=== PATIENT | male | born 1955 | race Caucasian/White ===

== ENCOUNTER 2020-07-03 11:00 | Emergency (ER) | payer OTHER ==
[2020-07-03] MEDS ORDERED: ACETAMINOPHEN 1000 MG/100 ML VIAL (NON FORMULARY) IVPB ONE (11:13)
[2020-07-03] MEDS ORDERED: SODIUM CHLORIDE 1,000 ML IV STA (11:13)
--- NOTE | 2020-07-03 11:13 | PDOC ---
History of Present Illness - General Chief Complaint: Pain, Acute Stated Complaint: RIGHT BACK/FLANK PAIN Time Seen by Provider: 07/03/20 11:10 History Source: Patient Exam Limitations: Language Barrier, Other (Pt prefered to use family for translatioun) - History of Present Illness Initial Comments: 65 year old male with PMH HTN, HLD, nicotine use (10 cigarettes per day) presen leonard to the ED for right flank pain since last night. Pt denied chest pain, shortness of breath, cough, nausea, vomiting, dysuria. Pt reported his pain is constant, waxing and waning, radiating around his right abdomen, no alleviating or aggravating factors. ROS General: denied fever, chills, generalized weakness. HEENT: denied sore throat, rhinorrhea, ear pain. Cardiovascular: denied chest pain, palpitations, syncope, diaphoresis. Respiratory: denied shortness of breath, cough, sputum production, hemoptysis. Gastrointestinal: denied abdominal pain, nausea, vomiting, diarrhea, constipation, blood in stool. Genitourinary: admitted to flank pain. denied dysuria, increased urinary frequency, hematuria, urinary incontinence Back: denied back pain. Musculoskeletal: denied joint pain, muscle pain, joint swelling. Neurological: denied headache, dizziness, numbness, tingling, weakness. Integumentary: denied rash, laceration, abrasion. Hematologic/Lymphatic: denied bruising or bleeding. PE Constitutional: Well-nourished, Well-developed, appearing stated age. HEENT: head is normocephalic, atraumatic. EOMI. PERRLA. Neck: supple. Full ROM. Cardiovascular: regular heart rhythm. Normal S1 and S2. no murmurs. no pericardial friction rub. Respiratory: clear to auscultation bilaterally. no crackles, rhonchi or wheezing. no stridor. Gastrointestinal: soft, flat, nontender. normal bowel sounds. no rebound, guarding, or masses. Back: positive right CVA tenderness. negative left CVA tenderness. Extremities: peripheral pulses intact and equal. no lower extremity edema noted. Neurological: CN 2-12 grossly intact. moves all four extremities. Psych: awake, alert, oriented x3. follows commands. answers questions appropriately. Past History - Medical History Allergies/Adverse Reactions: Allergies Allergy/AdvReac Type Severity Reaction Status Date / Time No Known Allergies Allergy Verified 07/03/20 11:09 Home Medications: Ambulatory Orders Atorvastatin Ca [Lipitor] 10 mg PO HS 07/03/20 Ibuprofen 600 mg PO ONCE 07/03/20 Losartan Potassium [Cozaar] 100 mg PO DAILY 07/03/20 ED Treatment Course - LABORATORY CBC & Chemistry Diagram: 07/03/20 11:30 07/03/20 11:30 Medical Decision Making - Medical Decision Making 65 year old male with above PMH presented to ED for right flank pain radiating around to his right abdomen, associated with right + CVA tenderness. Initial Vital Signs Temp Pulse Resp BP Pulse Ox 98.7 F 79 16 167/100 99 07/03/20 11:09 07/03/20 11:09 07/03/20 11:09 07/03/20 11:09 07/03/20 11:09 Hypertensive. Afebrile. Medications ordered Acetaminophen Injection [Ofirmev Injection -] 1,000 mg IVPB ONCE ONE Sodium Chloride [Normal Saline -] 1,000 ml IV ASDIR Orders CBC WITH DIFFERENTIAL Stat COMP METABOLIC PANEL Stat UA ([facility] ONLY) Stat URINE CULTURE Stat Bedside POCUS performed by ia -No left sided hydro -Right sided hydro + dilated renal pelvis -Aorta <3 cm in proximal, mid, and distal views -To be verified by CT imaging 07/03/20 12:20 Laboratory Last Values WBC 12.0 K/mm3 (4.0-10.8) H 07/03/20 11:30 RBC 4.76 M/mm3 (4.00-5.60) 07/03/20 11:30 Hgb 15.0 GM/dl (11.7-16.9) 07/03/20 11:30 Hct 42.7 % (35.4-49) 07/03/20 11:30 MCV 89.8 fl (80-96) 07/03/20 11:30 MCH 31.5 pg (25.7-33.7) 07/03/20 11:30 MCHC 35.0 g/dl (32.0-35.9) 07/03/20 11:30 RDW 12.9 % (11.9-15.9) 07/03/20 11:30 Plt Count 210 K/MM3 (134-434) 07/03/20 11:30 MPV 9.9 fl (7.5-11.1) 07/03/20 11:30 Absolute Neuts (auto) 9.2 K/mm3 07/03/20 11:30 Neutrophils % 76.7 % (42.8-82.8) 07/03/20 11:30 Lymphocytes % 13.1 % (8-40) 07/03/20 11:30 Monocytes % 6.5 % (3.8-10.2) 07/03/20 11:30 Eosinophils % 1.0 % (0-4.5) 07/03/20 11:30 Basophils % 2.7 % (0-2.0) H 07/03/20 11:30 Sodium 138 mmol/L (136-145) 07/03/20 11:30 Potassium 4.0 mmol/L (3.5-5.1) 07/03/20 11:30 Chloride 110 mmol/L (98-107) H 07/03/20 11:30 Carbon Dioxide 19 mmol/L (21-32) L 07/03/20 11:30 Anion Gap 9 MMOL/L (8-16) 07/03/20 11:30 BUN 24.0 mg/dl (7-18) H 07/03/20 11:30 Creatinine 1.0 mg/dl (0.55-1.3) 07/03/20 11:30 Est GFR (CKD-EPI)AfAm 90.50 07/03/20 11:30 Est GFR (CKD-EPI)NonAf 78.08 07/03/20 11:30 Random Glucose 146 mg/dl (74-106) H 07/03/20 11:30 Calcium 8.9 mg/dl (8.5-10) 07/03/20 11:30 Total Bilirubin 0.7 mg/dl (0.2-1) 07/03/20 11:30 AST 18 U/L (15-37) 07/03/20 11:30 ALT 24 U/L (13-61) 07/03/20 11:30 Alkaline Phosphatase 55 U/L (45-117) 07/03/20 11:30 Total Protein 7.0 g/dl (6.4-8.2) 07/03/20 11:30 Albumin 4.2 g/dl (3.4-5.0) 07/03/20 11:30 Urine Color Yellow 07/03/20 12:10 Urine Appearance Clear 07/03/20 12:10 Urine pH 5.0 (4.5-8) 07/03/20 12:10 Urine Protein Negative (NEGATIVE) 07/03/20 12:10 Urine Glucose (UA) Negative (NEGATIVE) 07/03/20 12:10 Urine Ketones Negative (NEGATIVE) 07/03/20 12:10 Urine Blood 2+ (NEGATIVE) H 07/03/20 12:10 Urine Nitrite Negative (NEGATIVE) 07/03/20 12:10 Urine Bilirubin Negative (NEGATIVE) 07/03/20 12:10 Urine Urobilinogen 0.2 (0.2-1.0) 07/03/20 12:10 Ur Leukocyte Esterase Negative (NEGATIVE) 07/03/20 12:10 Leukocytosis without left shift. No anemia. No clinically concerning electrolyte abnormalities. No CANDACE, pre-renal. No transaminitis. Hematuria. No UTI. CT spiral image ordered. Less suspicious for aortic pathology given hematuria and right sided hydro on bedside POCUS. 07/03/20 13:46 CT shows right UVJ stone with moderate hydro and perinephric stranding. Likely to pass spontaneously, pt is pain controlled with Tylenol IV only. Will treat with NSAIDs/Tylenol. Advise increased water intake. Advise follow up with PCP, urology. Results and recommendations given to Daughter over the phone, . Discharge - Discharge Information Problems reviewed: Yes Clinical Impression/Diagnosis: Right flank pain, Renal colic on right side, Kidney stone Condition: Improved Disposition: HOME - Admission No - Follow up/Referral Referrals: Gopal Lund MD [Staff Physician] - Jacques Cerda MD [Staff Physician] - Chidi Farnk MD [Staff Physician] - - Patient Discharge Instructions Patient Printed Discharge Instructions: DI for Kidney Stones Additional Instructions: Primary Physician: VAL BRANNON MD. [phone]. [address] [place] [address] Follow up with your primary care doctor within 3 days regarding your ER visit. Your care is not complete until you follow up. Follow up with a urologist within 5 days regarding your ER visit. Your care is not complete until you follow up. I have provided you with referrals. Take Naproxen for the pain. Take over the counter, follow instructions on label. You can also take Tylenol 1,000 mg every 8 hours as needed for pain. Tylenol and Naproxen are not the same medication and can be safely used together. Increase your water intake to help flush out the stone. Return to the ER for increasing pain, chest pain, shortness of breath, vomiting, lightheadedness, fever, chills, pain with urination, blood in urine or any other new, worsening or concerning symptoms. - Post Discharge Activity
--- OUTSIDE RECORDS SUMMARY | 2020-07-03 11:18 | XMS ---
:1955 Author Organization [facility] Support Name Relationship Address Phone UNK Unavailable Unavailable Unavailable Re-disclosure Warning The records that you are about to access may contain information from federally- assisted alcohol or drug abuse programs. If such information is present, then the following federally mandated warning applies: This information has been disclosed to you from records protected by federal confidentiality rules (42 CFR part 2). The federal rules prohibit you from making any further disclosure of this information unless further disclosure is expressly permitted by the written consent of the person to whom it pertains or as otherwise permitted by 42 CFR part 2. A general authorization for the release of medical or other information is NOT sufficient for this purpose. The Federal rules restrict any use of the information to criminally investigate or prosecute any alcohol or drug abuse patient.The records that you are about to access may contain highly sensitive health information, the redisclosure of which is protected by Article 27-F of the [facility] Public Health law. If you continue you may haveaccess to information: Regarding HIV / AIDS; Provided by facilities licensed or operated by the [facility] Office of Mental Health; or Provided by the [facility] Office for People With Developmental Disabilities. If such information is present, then the following [facility] mandated warning applies: This information has been disclosed to you from confidential records which are protected by state law. State law prohibits you from making any further disclosure of this information without the specific written consent of the person to whom it pertains, or as otherwise permitted by law. Any unauthorized further disclosure in violation of state law may result in a fine or long term sentence or both. A general authorization for the release of medical or other information is NOT sufficient authorization for further disclosure. Insurance Providers Payer name Policy type Policy ID Covered Covered republican's Policy P [id number] / Coverage republican ID relationship to [employer] type sutart SELF PAY SP INSURANCE
[2020-07-03 11:24] VITALS: BMI 32.9
[2020-07-03] MEDS ORDERED: ACETAMINOPHEN INJECTION 100 ML IVPB ONE (11:24)
[2020-07-03 11:52] LABS: BASO % 2.7 % (0-2.0); HEMATOCRIT 42.7 % (35.4-49); LYMPH % 13.1 % (8-40); MCH 31.5 pg (25.7-33.7); MEAN CELL VOLUME 89.8 fl (80-96); MEAN PLT VOLUME 9.9 fl (7.5-11.1); MONO % 6.5 % (3.8-10.2); NEUT % 76.7 % (42.8-82.8); PLATELET COUNT 210 K/MM3 (134-434); RBC 4.76 M/mm3 (4.00-5.60); RDW 12.9 % (11.9-15.9)
[2020-07-03 12:03] LABS: ALBUMIN 4.2 g/dl (3.4-5.0); BILIRUBIN,TOTAL 0.7 mg/dl (0.2-1); CALCIUM 8.9 mg/dl (8.5-10)
[2020-07-03 12:30] LABS: URIC ACID CRYSTALS 1+ /hpf (NONE SEEN)
--- NOTE | 2020-07-03 12:32 | PDOC ---
Attending Attestation - Resident Resident Name: MohinderElda - ED Attending Attestation I have performed the following: I have examined & evaluated the patient, The case was reviewed & discussed with the resident, I agree w/resident's findings & plan - HPI HPI: 07/03/20 12:29 65-year-old male with history of hypertension, high cholesterol presents with right flank pain since yesterday. Reports gradual onset of dull pain in the right flank region that began radiating to the right pelvis/groin, associated with some difficulty urinating but no gross hematuria, no fevers or chills or nausea or vomiting. No injury, no cough or shortness of breath or palpitations, no history of postprandial abdominal pain. Had some abdominal surgery during childhood but cannot recall reason. - Physicial Exam PE: 07/03/20 12:30 Vital signs are within normal limits, Blood pressure slightly elevated No jaundice or pallor, speaking comfortably in stretcher Heart is regular, lungs are clear Abdomen is soft/nondistended. No reproducible tenderness in the right upper quadrant or right flank, no rash, no bruising. Neurologically intact - Medical Decision Making 07/03/20 12:31 65-year-old male with right flank pain since last night, hemodynamically stable with benign abdominal exam. Question nephrolithiasis, rule out vascular etiology in this elderly patient with hypertension. Labs, urinalysis CT of the abdomen and pelvis Pain control Reassess and disposition accordingly 07/03/20 13:30 labs wnl including Cr. UA with blood but no evidene of infection on my prelim review of CT images, R UVJ stone with hydro. pt comfortably and non-toxic appearing after tylenol. anticipate d/c with urology referral, pain control, and return criteria Discharge - Discharge Information Problems reviewed: Yes Clinical Impression/Diagnosis: Right flank pain, Renal colic on right side Condition: Improved - Follow up/Referral - Patient Discharge Instructions Additional Instructions: Primary Physician: VAL BRANNON MD. [phone]. [address] [place] [address] - Post Discharge Activity
[2020-07-03 13:34] VITALS: BP 146/90; PULSE 60; TEMP 97.9
[2020-07-03] MEDS ORDERED: IBUPROFEN 600 MG TABLET (FP) PO ONE (13:52)
== END 2020-07-03 14:15 | disposition home or self-care (01) ==
LOC: FER 11:00
PROC: 3E0333Z Introduction of Anti-inflammatory into Peripheral Vein, Percutaneous Approach (ICD-10-PCS; principal; 2020-07-03)
PROC: 3E0337Z Introduction of Electrolytic and Water Balance Substance into Peripheral Vein, Percutaneous Approach (ICD-10-PCS; 2020-07-03)
DX: R10.9 Unspecified abdominal pain (principal); N23 Unspecified renal colic
CPT/HCPCS: 36415; 74176-TC; 80053; 81003; 81015; 85025; 87086; 99284-25; J0131

== ENCOUNTER 2022-11-26 23:28 | Emergency (ER) | payer OTHER ==
[2022-11-26 23:51] VITALS: BP 132/89; PULSE 85; RESP 18; TEMP 98; BMI 33.5
[2022-11-27] MEDS ORDERED: ACYCLOVIR 200 MG CAPSULE PO ONE (00:14)
[2022-11-27] MEDS ORDERED: KETOROLAC TROMETHAMINE 60 MG/2 ML VIAL ONE (00:25)
[2022-11-27] MEDS ORDERED: KETOROLAC TROMETHAMINE 60 MG/2 ML VIAL IM ONE (00:25)
[2022-11-27] MEDS ORDERED: ACYCLOVIR 400 MG TABLET PO ONE (00:33)
== END 2022-11-27 00:36 | disposition home or self-care (01) ==
LOC: FER 23:28
PROC: 3E023GC Introduction of Other Therapeutic Substance into Muscle, Percutaneous Approach (ICD-10-PCS; principal; 2022-11-26)
DX: B02.9 Zoster without complications (principal)
CPT/HCPCS: 99284-25

== ENCOUNTER 2023-10-11 20:26 | Emergency (ER) | payer OTHER ==
[2023-10-11 20:32] VITALS: BP 161/100; PULSE 102; RESP 20; TEMP 98.3; BMI 30.4
[2023-10-11] MEDS ORDERED: DEXAMETHASONE SOD PHOSPHATE 10 MG/1 ML VIAL IM ONE (21:27)
[2023-10-11] MEDS ORDERED: DEXAMETHASONE SOD PHOSPHATE 10 MG/1 ML VIAL ONE (21:28)
== END 2023-10-11 21:36 | disposition home or self-care (01) ==
LOC: FER 20:26
PROC: 3E023GC Introduction of Other Therapeutic Substance into Muscle, Percutaneous Approach (ICD-10-PCS; principal; 2023-10-11)
DX: R07.0 Pain in throat (principal); R09.81 Nasal congestion; R05.9 Cough, unspecified; R13.10 Dysphagia, unspecified; R51.9 Headache, unspecified; Z20.822 Contact with and (suspected) exposure to COVID-19
CPT/HCPCS: 0241U-QW; 71046-TC-FY; 96372; 99284-25; J1100

== ENCOUNTER 2023-10-20 21:36 | Emergency (ER) | payer OTHER ==
[2023-10-20 21:51] VITALS: BMI 30.4
[2023-10-20] MEDS ORDERED: SODIUM CHLORIDE 1,000 ML IV ONE (22:00)
[2023-10-20] MEDS ORDERED: morphine CARPU-JECT 4 MG/1 ML DISP.SYRIN IVPUSH ONE (22:00)
[2023-10-20] MEDS ORDERED: ONDANSETRON 4 MG/2 ML VIAL IVPUSH ONE (22:00)
[2023-10-20] MEDS ORDERED: ONDANSETRON 4 MG/2 ML VIAL ONE (22:04)
[2023-10-20 22:27] VITALS: BP 160/87; PULSE 82; RESP 18; TEMP 97.9
[2023-10-20 22:27] LABS: HEMATOCRIT 34.9 % (35.4-49); HEMOGLOBIN 12.1 G/dL (11.7-16.9); MCH 30.4 pg (25.7-33.7); MCHC 34.8 g/dl (32.0-35.9); MEAN CELL VOLUME 87.3 fl (80-96); MEAN PLT VOLUME 8.1 fl (7.5-11.1); PLATELET COUNT 228.7 10^3/uL (134-434); RDW 14.2 % (11.9-15.9); WHITE BLOOD COUNT 8.4 10^3/uL (4.0-10.8)
[2023-10-20 22:53] LABS: PLATELET ESTIMATE ADEQUATE
[2023-10-20 22:55] LABS: ALBUMIN 4.2 g/dl (3.4-5.0); BILIRUBIN,TOTAL 0.4 mg/dl (0.2-1); CALCIUM 9.3 mg/dl (8.5-10.1); CREATININE 1.6 mg/dl (0.6-1.3); POTASSIUM 3.9 mmol/L (3.5-5.1); TOT PROT 6.7 g/dl (6.4-8.2)
[2023-10-21] MEDS ORDERED: TAMSULOSIN HCL 0.4 MG CAP PO STA (00:48)
[2023-10-21] MEDS ORDERED: KETOROLAC TROMETHAMINE 30 MG/1 ML VIAL IVPUSH ONE (00:48)
[2023-10-21] MEDS ORDERED: SODIUM CHLORIDE 0.9% 500 ML INFUS.BAG IV STA (00:49)
[2023-10-21] MEDS ORDERED: KETOROLAC TROMETHAMINE 30 MG/1 ML VIAL ONE (01:04)
[2023-10-21] MEDS ORDERED: TAMSULOSIN HCL 0.4 MG CAP ONE (01:05)
== END 2023-10-21 01:36 | disposition home or self-care (01) ==
LOC: FER 21:36
PROC: 3E033GC Introduction of Other Therapeutic Substance into Peripheral Vein, Percutaneous Approach (ICD-10-PCS; 2023-10-20)
PROC: 3E033GC Introduction of Other Therapeutic Substance into Peripheral Vein, Percutaneous Approach (ICD-10-PCS; 2023-10-20)
PROC: 3E0337Z Introduction of Electrolytic and Water Balance Substance into Peripheral Vein, Percutaneous Approach (ICD-10-PCS; 2023-10-20)
PROC: 3E0333Z Introduction of Anti-inflammatory into Peripheral Vein, Percutaneous Approach (ICD-10-PCS; principal; 2023-10-21)
DX: R10.30 Lower abdominal pain, unspecified (principal); M54.50 Low back pain, unspecified; R11.0 Nausea; N13.2 Hydronephrosis with renal and ureteral calculous obstruction
CPT/HCPCS: 36415; 74177-TC; 80053; 81003; 85027; 87086; 96361; 96374; 96375; 99285-25; Q9967

== ENCOUNTER 2023-10-28 20:09 | Emergency (ER) | payer OTHER ==
[2023-10-28 20:34] VITALS: BP 125/79; PULSE 87; RESP 18; TEMP 97.9; BMI 30.4
[2023-10-28] MEDS ORDERED: KETOROLAC TROMETHAMINE 30 MG/1 ML VIAL ONE (20:36)
[2023-10-28] MEDS: SODIUM CHLORIDE 1,000 ML IV STA (20:40)
[2023-10-28] MEDS: KETOROLAC TROMETHAMINE 30 MG/1 ML VIAL IVPUSH ONE (20:41)
[2023-10-28 20:52] LABS: HEMATOCRIT 32.4 % (35.4-49); MCH 29.9 pg (25.7-33.7); MCHC 33.9 g/dl (32.0-35.9); MEAN CELL VOLUME 88.4 fl (80-96); MEAN PLT VOLUME 8.3 fl (7.5-11.1); PLATELET COUNT 291.9 10^3/uL (134-434); RBC 3.67 10^6/uL (4.00-5.60); RDW 14.1 % (11.9-15.9); WHITE BLOOD COUNT 9.8 10^3/uL (4.0-10.8)
[2023-10-28 21:02] LABS: PLATELET ESTIMATE ADEQUATE
[2023-10-28 21:12] LABS: ALBUMIN 4.1 g/dl (3.4-5.0); BILIRUBIN,TOTAL 0.3 mg/dl (0.2-1); CALCIUM 9.3 mg/dl (8.5-10.1); CREATININE 2.2 mg/dl (0.6-1.3); POTASSIUM 4.4 mmol/L (3.5-5.1); TOT PROT 6.6 g/dl (6.4-8.2)
[2023-10-28] MEDS: morphine CARPU-JECT 2 MG/1 ML DISP.SYRIN IVPUSH ONE (22:52)
[2023-10-28] MEDS ORDERED: morphine SULFATE 4 MG/ML VIAL ONE (22:54)
== END 2023-10-28 23:18 | disposition home or self-care (01) ==
LOC: FER 20:09
PROC: 3E0333Z Introduction of Anti-inflammatory into Peripheral Vein, Percutaneous Approach (ICD-10-PCS; principal; 2023-10-28)
PROC: 3E033GC Introduction of Other Therapeutic Substance into Peripheral Vein, Percutaneous Approach (ICD-10-PCS; 2023-10-28)
PROC: 3E0337Z Introduction of Electrolytic and Water Balance Substance into Peripheral Vein, Percutaneous Approach (ICD-10-PCS; 2023-10-28)
DX: R10.9 Unspecified abdominal pain (principal); N23 Unspecified renal colic
CPT/HCPCS: 36415; 74176-TC; 80053; 81003; 85027; 96361; 96374; 96375; 99284-25

== ENCOUNTER 2023-12-31 21:41 | Emergency (ER) | payer OTHER ==
[2023-12-31 22:00] VITALS: PULSE 94; RESP 17; TEMP 97.8; BMI 28.8
[2023-12-31] MEDS ORDERED: cloNIDine HCL 0.1 MG TABLET ONE (22:36)
[2023-12-31] MEDS: cloNIDine HCL 0.1 MG TABLET PO ONE (22:37)
[2023-12-31 23:07] VITALS: BP 152/106
== END 2023-12-31 23:14 | disposition home or self-care (01) ==
LOC: FER 21:41
DX: I10 Essential (primary) hypertension (principal); R51.9 Headache, unspecified; Z20.822 Contact with and (suspected) exposure to COVID-19
CPT/HCPCS: 0241U-QW; 99283-25